=== PATIENT | female | born 1960 | race Two or more races ===

== ENCOUNTER 2023-10-21 02:48 | Emergency (ER) | payer MEDICARE ==
[~2023-10-21] VITALS: Ht 167.6 cm; Wt 45.5 kg
[2023-10-21 02:52] VITALS: TEMP 97.9
[2023-10-21] MEDS ORDERED: HYDROCODONE/ACETAMINOPHEN 5-325 MG TABLET PO ONE (03:45)
[2023-10-21 04:17] LABS: BASOPHILS % (AUTO) 1.1 % (0.0-2.0); EOSINOPHILS % (AUTO) 3.2 % (1.0-6.0); HEMATOCRIT 43.3 % (36-46); LYMPHOCYTES # (AUTO) 2.3 K/uL (1.0-4.8); LYMPHOCYTES % (AUTO) 32.3 % (22.0-44.0); MEAN CORPUSCULAR HEMOGLOBIN 31.7 pg (26.0-34.0); MEAN CORPUSCULAR HGB CONC 34.6 G/dL (31.0-37.0); MEAN CORPUSCULAR VOLUME 92 fL (80-100); MONOCYTES # (AUTO) 0.6 K/uL (0.1-1.0); MONOCYTES % (AUTO) 8.6 % (2.0-9.0); NEUTROPHILS % (AUTO) 54.8 % (40.0-70.0); PLATELET COUNT (AUTO) 253 K/uL (150-450); RED BLOOD CELL COUNT(AUTO) 4.72 MIL/uL (4.00-5.20); RED CELL DISTRIBUTION WIDTH 13.8 % (11.5-14.5); WHITE BLOOD COUNT (AUTO) 7.3 K/uL (4.5-11.0)
[2023-10-21 04:28] LABS: ANION GAP 9 mmol/L (8-16); CALCIUM, TOTAL 9.5 mg/dL (8.8-10.5); CARBON DIOXIDE 31 mmol/L (22-29); CHLORIDE 105 mmol/L (98-107); CREATININE 0.63 mg/dL (0.60-1.30); GLOMERULAR FILTR. RATE CALC > 60 mL/min (>60); GLUCOSE,RANDOM 87 mg/dL (70-110); SODIUM SERUM 145 mmol/L (136-145); UREA NITROGEN, BLOOD 17 mg/dL (7-18)
[2023-10-21 04:32] LABS: PROTHROMBIN TIME 10.4 SEC (9.4-11.6)
[2023-10-21 04:36] LABS: TROPONIN I-HIGH SENSITIVITY 5 ng/L (<51)
[2023-10-21 04:42] LABS: ALANINE AMINOTRANSFERASE 17 U/L (12-78); ALBUMIN 4.5 g/dL (3.4-5.0); ALKALINE PHOSPHATASE 100 U/L (46-116); ASPARTATE AMINOTRANSFERASE 15 U/L (15-37); BILIRUBIN,TOTAL 0.3 mg/dL (0.1-1.0); CREATINE KINASE, TOTAL ONLY 77 U/L (26-192)
[2023-10-21 04:47] LABS: B-TYPE NATRIURETIC PEPTIDE 6 pg/mL (0-100)
[2023-10-21 04:53] LABS: COVID AG,FIA SOURCE NASAL SWAB
[2023-10-21 05:15] LABS: INFLUENZA TYPE A NEGATIVE FOR TYPE A (NEGATIVE); INFLUENZA TYPE B NEGATIVE FOR TYPE B (NEGATIVE); SARS-COV2 (COVID) ANTIGEN,FIA Negative (Negative)
[2023-10-21] MEDS ORDERED: TRAM-559 PO (05:54)
[2023-10-21 06:00] VITALS: BP 128/71; PULSE 77; RESP 16
== END 2023-10-21 06:06 | disposition home or self-care (01) ==
LOC: EMS 02:49
DX: S13.4XXA Sprain of ligaments of cervical spine, initial encounter (principal); R06.02 Shortness of breath; Z90.49 Acquired absence of other specified parts of digestive tract; Z98.890 Other specified postprocedural states; Z88.0 Allergy status to penicillin; Z20.822 Contact with and (suspected) exposure to COVID-19; X58.XXXA Exposure to other specified factors, initial encounter; Y93.89 Activity, other specified; Y92.89 Other specified places as the place of occurrence of the external cause; Y99.8 Other external cause status
CPT/HCPCS: 70490; 71045; 80053; 82550; 83880; 84484; 85025; 85610; 85730; 87804; 93005; 99285; 36415-L1; 36415-TC